=== PATIENT | female | born 1930 | race Caucasian/White ===

== ENCOUNTER 2020-04-07 21:33 | Inpatient (IN) | payer MEDICARE, OTHER ==
[2020-04-07 22:59] LABS: Bilirubin Negative (Negative); Blood, Urine Moderate (Negative); Glucose, Urine (Dipstick) Negative (Negative); Leukocyte Negative (Negative); Nitrite Negative (Negative); Protein, Urine (Dipstick) Negative (Neg-Trace); Urobilinogen 0.2 mg/dL (Less than 2)
[2020-04-07 23:05] LABS: Clarity Clear (Clear)
[2020-04-07 23:06] LABS: Bacteria/HPF None Seen HPF (None Seen); RBC/HPF 0-3 HPF (0-3); Squamous Epithelial 0-3 HPF (0-3); WBC/HPF 0-3 HPF (0-3)
[2020-04-07 23:21] LABS: ALT (SGPT) 39 U/L (8-55); AST (SGOT) 34 U/L (5-34); Albumin 2.9 g/dL (3.4-4.8); Alkaline Phosphatase 152 U/L (40-110); Anion Gap 18 mmol/L (10-20); BUN (Urea Nitrogen) 104 mg/dL (9.8-20.1); Bilirubin, Total 1.6 mg/dL (0.2-1.2); CK (CPK) 46 U/L (29-168); Calc. Creatinine Clearance 0 mL/min (70-130); Calcium 7.9 mg/dL (7.8-10.44); Carbon Dioxide 21 mmol/L (23-31); Chloride 127 mmol/L (98-107); Estimated GFR-MDRD 21; Globulin 3.5 g/dL (2.4-3.5); Glucose 129 mg/dL (83-110); Lipase 135 U/L (8-78); Potassium 3.5 mmol/L (3.5-5.1); Protein, Total 6.4 g/dL (6.0-8.3); Sodium 162 mmol/L (136-145)
[2020-04-07 23:23] LABS: Anisocytosis SLIGHT = 6-15 cells (100X) (0-5/hpf); Band 8 % (5-11); Eosinophils 1 % (0-10); Hemoglobin 11.4 g/dL (12.0-16.0); Lymphocytes 3 % (21-51); MDiff Complete? YES; Macrocytosis SLIGHT = 6-15 cells (100X) (0-5/hpf); Mean Corpuscular HGB CONC 30.7 g/dL (32.0-36.0); Mean Corpuscular Hemoglobin 32.6 pg (27.0-31.0); Mean Platelet Volume 11.9 fL (7.4-10.4); Monocytes 5 % (0-10); Neutrophil 83 % (42-75); Platelet Count 81 thou/uL (130-400); Platelet Morphology Comment Appears Decreased; RBC Distribution Width 18.5 % (11.5-14.5); Red Blood Cell (RBC) Count 3.51 mill/uL (4.20-5.40); White Blood Cell (WBC) Count 18.7 thou/uL (4.8-10.8)
[2020-04-07 23:35] LABS: CKMB 2.5 ng/mL (0-6.6)
[2020-04-07] MEDS ORDERED: Vancomycin 1 GM/200 ML BAG ONE (23:38)
[2020-04-07] MEDS ORDERED: cefTRIAXone\\ROCEPHIN 2 GM VIAL ONE (23:38)
[2020-04-08] MEDS ORDERED: Acetaminophen 650 MG Suppository PR PRN (00:49)
[2020-04-08] MEDS ORDERED: Ondansetron PF 4 MG/2 ML Vial IVP PRN (00:49)
[2020-04-08 02:42] LABS: Lactic Acid 3.2 mmol/L (0.5-2.2)
[2020-04-08 02:53] LABS: Troponin I 0.286 ng/mL (< 0.028)
[2020-04-08] MEDS: Dextrose 5% in Water 1,000 ML IV SCH ×2 (03:19→13:10)
[2020-04-08 03:42] VITALS: BMI 20.3
[2020-04-08 04:26] LABS: ALT (SGPT) 37 U/L (8-55); AST (SGOT) 35 U/L (5-34); Albumin 2.8 g/dL (3.4-4.8); Alkaline Phosphatase 150 U/L (40-110); Anion Gap 20 mmol/L (10-20); BUN (Urea Nitrogen) 88 mg/dL (9.8-20.1); Bilirubin, Total 1.4 mg/dL (0.2-1.2); Calc. Creatinine Clearance 16 mL/min (70-130); Calcium 8.2 mg/dL (7.8-10.44); Carbon Dioxide 20 mmol/L (23-31); Chloride 124 mmol/L (98-107); Estimated GFR-MDRD 24; Globulin 3.5 g/dL (2.4-3.5); Glucose 114 mg/dL (83-110); Lipase 145 U/L (8-78); Potassium 3.6 mmol/L (3.5-5.1); Protein, Total 6.3 g/dL (6.0-8.3); Sodium 160 mmol/L (136-145)
[2020-04-08 04:46] LABS: CKMB 2.6 ng/mL (0-6.6)
[2020-04-08 05:43] LABS: Hemoglobin 11.5 g/dL (12.0-16.0); Mean Corpuscular HGB CONC 29.9 g/dL (32.0-36.0); Mean Corpuscular Hemoglobin 32.2 pg (27.0-31.0); Mean Platelet Volume 8.6 fL (7.4-10.4); Platelet Count 78 thou/uL (130-400); RBC Distribution Width 18.2 % (11.5-14.5); Red Blood Cell (RBC) Count 3.59 mill/uL (4.20-5.40); White Blood Cell (WBC) Count 19.6 thou/uL (4.8-10.8)
[2020-04-08 06:04] LABS: Anisocytosis MODERATE=16-30 cells (100X) (0-5/hpf); Band 19 % (5-11); Lymphocytes 5 % (21-51); MDiff Complete? YES; Macrocytosis SLIGHT = 6-15 cells (100X) (0-5/hpf); Monocytes 6 % (0-10); Neutrophil 70 % (42-75); Platelet Morphology Comment Appears Decreased; Polychromasia SLIGHT = 2-3 cells (100X) (0-2/hpf)
[2020-04-08 06:44] LABS: Troponin I 0.266 ng/mL (< 0.028)
[2020-04-08] MEDS: Meropenem 500 MG in Sodium Chloride 0.9% 100 ML IVPB SCH ×2 (06:45→18:08)
--- NOTE | 2020-04-08 07:15 | RAD ---
CHEST 1 VIEW: Date: 04/07/2020 HISTORY: Altered mental status. COMPARISON: None. FINDINGS: Heart size is enlarged. Bilateral pleural effusions, small. Scarring both lung bases. Severe degenerative disease of both shoulders with rotator cuff arthropathy . Right lower lobe air space consolidation. IMPRESSION: 1. Right lower lobe air space consolidation concerning for infection. 2. Small bilateral pleural effusions. 3. Marked cardiomegaly. POS: HOME
[2020-04-08 08:41] LABS: Legionella Urinary Ag Negative (Negative); Strep pneumo Urine Ag NEGATIVE (NEGATIVE)
[2020-04-08] MEDS ORDERED: Vancomycin 1 GM in Premix Bag 1 BAG IVPB SCH (09:00)
--- NOTE | 2020-04-08 09:21 | CT ---
PRELIMINARY REPORT/[facility]/EMERGENCY AFTER HOURS PROCEDURE: Receipt of this report by the clinical staff was confirmed with Etienne Sarabia NP by Lyn Chaudhry on April 08, 2020 02:07:00 CDT. Addendum electronically signed by Lyn Chaudhry on April 08, 2020 2:07:47 AM CDT EXAM: CT Abdomen and Pelvis Without Intravenous Contrast CLINICAL HISTORY: Abdominal mass. Hypernatremia and acute renal insufficiency. Dementia with reported baseline nonver bal. TECHNIQUE: Axial computed tomography images of the abdomen and pelvis without intravenous contrast. Multiplanar reformats. CONTRAST: None. COMPARISON: None provided. FINDINGS: Limited without contrast. LUNG BASES: Right base patchy opacities. Bilateral small pleural effusions. LIVER: Unremarkable. GALLBLADDER AND BILE DUCTS: Unremarkable. No calcified stone. No ductal dilation. PANCREAS: Unremarkable. SPLEEN: Unremarkable. ADRENAL GLANDS: Unremarkable. KIDNEYS, URETERS, AND BLADDER: Boateng catheter appears dislodged and just within the labia. Left renal cortical hyperdensity. No hydronephrosis or nephrolithiasis. No ureteral or bladder calcul i. STOMACH AND BOWEL: Hiatal hernia No obstruction. No wall thickening. No CT evidence of colitis or acute diverticulitis. APPENDIX: No CT evidence for appendicitis. PERITONEUM: No free fluid. No free air. LYMPH NODES: No lymphadenopathy. REPRODUCTIVE: Unremarkable as visualized. VASCULATURE: Moderate cardiomegaly. 6.2 cm infrarenal aortic aneurysm treated with endograft. ABDOMINAL WALL AND SOFT TISSUES: Ill-defined serpiginous subcutaneous right inguinal mass, about 4.5 x 3.5 cm. BONES: Old T9 compression fracture. Total right hip arthroplasty. No fracture or suspicious osseous abnormality. Lumbar dextroscoliosis. 5 mm anterolisthesis of L4 on L5. Degenerative disc disease with foraminal narrowing at several lumbar levels. Osteopenia. IMPRESSION: 6.2 cm infrarenal aortic aneurysm treated with endograft. No kareen rupture. Comparison to priors barakat ggested. Left renal cortical hyperdensity, concerning for medical renal disease. No hydronephrosis or nephroli thiasis. Moderate cardiomegaly. Hiatal hernia. Right lower lobe pneumonia cannot be excluded. ELECTRONICALLY SIGNED BY: Isaías Ly MD April 08, 2020 2:03:26 AM CDT This report is intended for review by the ordering physician only, in accordance of law. If you recei ve this report in error, please call [facility] at [phone]. FINAL REPORT CT ABDOMEN AND PELVIS WITHOUT CONTRAST: I agree with the preliminary report given by [facility]. No previous exams are available for comparison.
[2020-04-08] MEDS: Famotidine/PF 20 mg/2ml Vial SLOW IVP SCH (10:06)
--- NOTE | 2020-04-08 10:35 | HP ---
CHIEF COMPLAINT: The patient has been sent from longterm because of abnormal labs. HISTORY OF PRESENT ILLNESS: This is an 89-year-old female patient who has history of essential hypertension and the patient had recent abdominal aneurysm repair and the patient is a longterm resident. Currently, the patient is extremely confused and not able to provide any history , but according to the history from the nurse practitioner from the emergency room , the patient was brought to the emergency department because of abnormal lab values. Subsequently, the patient had workup in the emergency department, and the patient was found to be having significant sepsis based on elevated lactic acid level and leukocytosis and presence of infiltrate in the right lower lobe of the lung. The patient also has significant acute kidney injury and hypernatremia. Because of the sepsis, the patient was given 2 L of lactated Ringer's as the patient had significant hypernatremia. Subsequently, the patient has been admitted Internal Medicine Service. Otherwise, no documentation of recent history of fever, cough , abdominal, or urinary symptoms, but the patient had abdominal aortic aneurysm repaired about a week ago at [facility]. PAST MEDICAL HISTORY: Hypertension and recent abdominal aortic aneurysm repair. PAST SURGICAL HISTORY: Abdominal aortic aneurysm repair. ALLERGIES: THE PATIENT IS NOT ALLERGIC TO ANY KNOWN MEDICATIONS. MEDICATIONS: Current medications at the longterm: 1. Seroquel 25 mg orally once a day. 2. Pepcid 20 mg orally once a day. 3. Senna 8.6 mg orally as needed. 4. Tramadol 50 mg orally once a day. 5. Alprazolam 1 mg orally once a day. SOCIAL HISTORY: The patient is a longterm resident; otherwise, no documented evidence of any tobacco abuse, alcohol abuse, or recreational drug abuse. FAMILY HISTORY: Not available at this point of time. REVIEW OF SYSTEMS: As mentioned in the history of present illness apart from the 14-point review of systems that have been conducted and not contributory. PHYSICAL EXAMINATION: GENERAL: Elderly female patient, lying on the stretcher comfortably, not appears to be in any cardiopulmonary distress. Mucous membranes are pale and moist. Acyanotic. Anicteric. No cyanosis, clubbing, pedal edema, or lymphadenopathy. VITAL SIGNS: Blood pressure 145/96, pulse 90, respirations 18, and temperature 99.4. HEENT: Head, atraumatic and normocephalic. Eyes, extraocular movements are intact. Pupils are equal and reactive to light bilaterally and accommodation reflex present. NECK: Supple. No jugular venous distention. No thyromegaly or carotid bruit. CHEST: Bilaterally symmetrical. Trachea is slightly deviated to the right side ; otherwise, the patient has significantly poor inspiratory effort, otherwise, decent breath sounds. No wheezing or rhonchi. CARDIOVASCULAR: Normal intensity of S1 and S2 without S3. No murmurs appreciated. The patient is in sinus tachycardia, and the patient has 2/6 systolic murmur over the entire precordium. ABDOMEN: Soft with palpable mass involving the right upper quadrant, which is firm and minimally tender; otherwise, the patient diffuse abdominal tenderness without any rebound. No organomegaly. Bowel sounds are normoactive. PHARMACEUTICAL ASSISTANT: The patient is arousable to verbal stimuli; otherwise, the patient is extremely confused and not oriented to time, place, and person. The patient has spontaneous movements of both upper and lower extremities. EXTREMITIES: No edema or calf asymmetry. LABORATORY DATA: WBC 18.7, hemoglobin 11.4, hematocrit 37.2, and platelets 81. Sodium 162, potassium 3.5, chloride 127, bicarb 21, anion gap 18, BUN 104, creatinine 2.2, glucose 129, lactic acid 2.3, calcium 7.9. Total bilirubin 1.6 , AST 34, ALT 39, alkaline phosphatase 152, ammonia 15, CK 46, CK-MB 2.5, troponin 0.28, protein 6.4, albumin 2.9, globulin 3.5, and lipase 135. Urinalysis revealed negative nitrite and negative leukocyte esterase. IMAGING STUDIES: Chest x-ray reveals infiltrates on the right lower lobe. ASSESSMENT: 1. Acute metabolic encephalopathy. a. Secondary to severe sepsis with background of dementia. Continue to monitor mental status closely. 2. Sepsis. a. Possibly secondary to right lower lobe healthcare associated pneumonia. b. Intravenous vancomycin and meropenem empirically. c. Continue to monitor lactic acid level as per sepsis protocol, but otherwise avoid normal saline because of severe hypernatremia. d. Await cultures. 3. Healthcare-associated pneumonia. a. Involving the right lower lobe of the lung. b. Continue intravenous vancomycin and meropenem. c. Avoid cultures. d. Urine Legionella and streptococcal antigen. 4. Abdominal mass. a. Involving the right upper quadrant region and umbilical region. b. Avoid CT scan of the abdomen and pelvis. c. The patient had repair of the abdominal aortic aneurysm recently. 5. Acute kidney injury. a. Secondary to sepsis. b. Keep the patient on D5W at 100 mL/hour. c. Avoid nephrotic medications. d. Monitor renal function tomorrow. 6. Hypernatremia. a. Secondary to severe dehydration. b. Avoid crystalloids. c. Keep the patient under excess water. d. Monitor serum sodium tomorrow. 7. Macrocytic anemia. a. Check B12 and folate levels. 8. History of abdominal aortic aneurysm. a. Status post recent repair. 9. Thrombocytopenia. a. Avoid anticoagulant for deep venous thrombosis prophylaxis. Job ID: [id number] [facility]
--- NOTE | 2020-04-08 10:47 | PDOC.HOSPP ---
- Subjective Encounter Date: 04/08/20 non-verbal - Objective Vital Signs & Weight: Vital Signs (12 hours) Temp Pulse Ox 04/08/20 08:00 98 04/08/20 07:07 93 L 04/08/20 07:00 97.8 F 04/08/20 04:00 95 04/08/20 03:41 98.0 F 04/08/20 02:40 96.3 F L Weight Weight 115 lb 1.6 oz Most Recent Monitor Data Heart Rate from ECG 92 NIBP 141/104 NIBP BP-Mean 116 Respiration from ECG 26 SpO2 91 I&O: 04/07/20 04/08/20 04/09/20 06:59 06:59 06:59 Intake Total 341 Output Total 150 Balance 191 Result Diagrams: 04/08/20 03:28 04/08/20 03:28 Hospitalist ROS - Medication Medications: Active Medications Generic Name Dose Route Start Last Admin Trade Name Freq PRN Reason Stop Dose Admin Famotidine 20 mg 04/08/20 09:00 04/08/20 10:06 Pepcid SLOW IVP 20 mg Q24HR ANGELY Administration Meropenem 500 mg/ Sodium 100 mls @ 200 mls/hr 04/08/20 05:00 04/08/20 06:45 Chloride IVPB 100 mls 0500,1700 ANGELY Administration Dextrose/Water 1,000 mls @ 100 mls/hr 04/08/20 01:00 04/08/20 03:19 D5w IV 1,000 mls .Q10H ANGELY Administration - Exam General - other findings: Appears a little encephalopathic. Eye contact, but non-verbal. Heart: RRR, no murmur, no gallops, no rubs, normal peripheral pulses Heart - other findings: Occ. ectopy. Borderline tachy Respiratory: CTAB Respiratory - other findings: Does not cooperate with exam. At times tachypneic. Gastrointestinal: soft, non-tender, non-distended, normal bowel sounds, no palpable masses, no hepatomegaly, no splenomegaly, no bruit Extremities: no cyanosis, no clubbing, no edema Musculoskeletal: generalized weakness Psychiatric: not oriented, lethargic Hosp A/P (1) Sepsis Code(s): A41.9 - SEPSIS, UNSPECIFIED ORGANISM Status: Acute (2) Pneumonia Code(s): J18.9 - PNEUMONIA, UNSPECIFIED ORGANISM Status: Acute (3) Hypernatremia Code(s): E87.0 - HYPEROSMOLALITY AND HYPERNATREMIA Status: Acute (4) Dehydration Code(s): E86.0 - DEHYDRATION Status: Acute (5) FERNANDO (acute kidney injury) Code(s): N17.9 - ACUTE KIDNEY FAILURE, UNSPECIFIED Status: Acute (6) Hyperbilirubinemia Code(s): E80.6 - OTHER DISORDERS OF BILIRUBIN METABOLISM Status: Acute (7) Thrombocytopenia Code(s): D69.6 - THROMBOCYTOPENIA, UNSPECIFIED Status: Acute (8) Cardiomegaly Code(s): I51.7 - CARDIOMEGALY Status: Acute (9) Acute metabolic encephalopathy Code(s): G93.41 - METABOLIC ENCEPHALOPATHY Status: Acute (10) Dementia Code(s): F03.90 - UNSPECIFIED DEMENTIA WITHOUT BEHAVIORAL DISTURBANCE Status: Acute (11) Macrocytic anemia Code(s): D53.9 - NUTRITIONAL ANEMIA, UNSPECIFIED Status: Acute (12) Dysphagia Code(s): R13.10 - DYSPHAGIA, UNSPECIFIED Status: Acute - Plan Sepsis: Hydration IV abx. Follow up cultures. Pneumonia: Concerning for aspiration given location and dysphagia/dementia. Covered with Vanc and Cefepime. Follow up cultures. Has significant leukocytosis with left shift. Acute hypoxic resp failure: Does not like the NC oxygen and skakes her head to get it off. Sats are ok with it. Due to pneumonia. FERNANDO: Appears to be related to dehydration based on indices. Continue to monitor with hydration. Hyperbilirubinemia: Unclear etiology. No major findings on CT abdomen. Monitor. Thrombocytopenia: Monitor for now. Cardiomegaly on CT: Echo. Acute metabolic encph: Difficult to differentiate given the dementia. Likely due to infection. Dementia: Non-verbal. Late stages of the disease. Dysphagia: Likely due to dementia and encephalopathy. Discussed with SOLAR MAINTENANCE TECHNICIAN. Keep NPO and try [place] Free Water Protocol. Macrocytic anemia: Chronic. DVT proph: Heparin. PUD proph: H2 antagonist.
--- NOTE | 2020-04-08 12:13 | CON ---
DATE OF CONSULTATION: 04/08/2020 CONSULTING PHYSICIAN: Hospitalist Group. REASON FOR CONSULTATION: Altered mental status. HISTORY OF PRESENT ILLNESS: The patient cannot give a history. She has never been in this hospital before. What I have is what was obtained in the ER last night. The patient is an 89-year-old prison resident, who was brought to the hospital with altered mental status. I am not sure what her baseline is. Her history and physical indicates she has severe dementia. Also, it is noted that she was in [facility] in [place] 2 weeks ago for AAA endovascular stent. On presentation last night, she was noted to be severely hypernatremic, consistent with profound dehydration. PAST MEDICAL HISTORY: 1. Peripheral vascular disease. 2. Hypertension. 3. Anxiety. 4. Osteoarthritis. 5. Dementia. 6. Congestive heart failure - unknown type. FAMILY MEDICAL HISTORY: Not known at this time. PAST SURGICAL HISTORY: Endovascular AAA stent. SOCIAL HISTORY: Nonsmoker. Does not consume alcohol. MEDICATIONS: Prior to admission; 1. Seroquel 25 mg daily. 2. Pepcid 20 mg daily. 3. Senna 8.6 mg p.r.n. 4. Tramadol 50 mg p.r.n. 5. Alprazolam 1 mg nightly. REVIEW OF SYSTEMS: Cannot be obtained secondary to her altered mental status. PHYSICAL EXAMINATION: VITAL SIGNS: Her temperature is 97.8, pulse 97, blood pressure 149/108, and O2 saturation 91% on room air. GENERAL: The patient is an elderly female, who appears profoundly dry. HEENT: Clear sclera. Oral mucous membranes dry. NECK: No adenopathy or JVD. CARDIAC: S1 and S2. Slightly tachycardic without audible murmur. LUNGS: Clear to auscultation. ABDOMEN: Soft and nontender to palpation. No scars noted. EXTREMITIES: No clubbing, cyanosis, or edema. LABORATORY DATA: Sodium 160, potassium 3.6, chloride 124, CO2 of 20, BUN 88, creatinine 1.9, glucose 114, total bilirubin is 1.4, and alkaline phosphatase 150. Troponin 0.27. Albumin 2.8. Lipase 145. White blood cell count 19.6, hematocrit 38.6, and platelet count 78. IMAGING DATA: Chest x-ray is rotated. Does not show any profound infiltrate. CT of the abdomen was read as negative except for possibility of an infiltrate in the right lower lobe. ASSESSMENT: 1. Profound volume depletion. 2. Possible right lower lobe pneumonia. 3. Dementia. 4. Acute renal dysfunction. PLAN: 1. The patient has been started on D5W for the purpose of rehydration. 2. We would monitor sodium level closely not to drop it too much given the amount of free water deficit that she has at this time. 3. Agree with empiric antibiotics. 4. We would advise discussing with family regarding code status as prognosis seems guarded if not poor. Job ID: [id number]
[2020-04-08 12:28] LABS: Anion Gap 16 mmol/L (10-20); BUN (Urea Nitrogen) 77 mg/dL (9.8-20.1); Calc. Creatinine Clearance 18 mL/min (70-130); Carbon Dioxide 21 mmol/L (23-31); Chloride 121 mmol/L (98-107); Estimated GFR-MDRD 28; Glucose 121 mg/dL (83-110); Potassium 3.3 mmol/L (3.5-5.1); Sodium 155 mmol/L (136-145)
[2020-04-08] MEDS: Heparin 5,000 UNITS/ML VIAL SC SCH (21:37)
[2020-04-08 23:39] LABS: Vancomycin, Random 11.2 ug/mL (See Comment)
[2020-04-08] MEDS ORDERED: Vancomycin HCl 750 MG in Sodium Chloride 0.9% 250 ML 250 ML IVPB SCH (23:59)
[2020-04-09] MEDS: Dextrose 5% in Water 1,000 ML IV SCH ×4 (00:14→19:05)
[2020-04-09] MEDS: Vancomycin HCl 750 MG in Sodium Chloride 0.9% 250 ML 250 ML IVPB SCH (00:24)
[2020-04-09 04:35] LABS: #Eosinphils 0.1 thou/uL (0.0-0.7); #Lymphocytes 0.8 thou/uL (1.20-3.40); #Monocytes 0.9 thou/uL (0.11-0.59); #Neutrophils 12.9 thou/uL (1.40-6.50); %Basophils 0.1 % (0.0-1.0); %Eosinophils 0.4 % (0.0-10.0); %Lymphocytes 5.4 % (21.0-51.0); %Monocytes 6.4 % (0.0-10.0); %Neutrophils 87.8 % (42.0-75.0); Hemoglobin 10.6 g/dL (12.0-16.0); Mean Corpuscular HGB CONC 30.5 g/dL (32.0-36.0); Mean Corpuscular Hemoglobin 32.2 pg (27.0-31.0); Mean Platelet Volume 12.3 fL (7.4-10.4); Platelet Count 76 thou/uL (130-400); RBC Distribution Width 17.3 % (11.5-14.5); White Blood Cell (WBC) Count 14.7 thou/uL (4.8-10.8)
[2020-04-09 04:36] LABS: Anisocytosis SLIGHT = 6-15 cells (100X) (0-5/hpf); MDiff Complete? YES; Macrocytosis SLIGHT = 6-15 cells (100X) (0-5/hpf); Platelet Morphology Comment Appears Decreased; Polychromasia SLIGHT = 2-3 cells (100X) (0-2/hpf); Schistocytes SLIGHT = 2-5 cells (100X) (0-1/hpf)
[2020-04-09 04:39] LABS: ALT (SGPT) 28 U/L (8-55); AST (SGOT) 31 U/L (5-34); Albumin 2.6 g/dL (3.4-4.8); Alkaline Phosphatase 132 U/L (40-110); Anion Gap 14 mmol/L (10-20); BUN (Urea Nitrogen) 67 mg/dL (9.8-20.1); Bilirubin, Total 1.2 mg/dL (0.2-1.2); Calc. Creatinine Clearance 20 mL/min (70-130); Calcium 7.4 mg/dL (7.8-10.44); Carbon Dioxide 20 mmol/L (23-31); Chloride 117 mmol/L (98-107); Estimated GFR-MDRD 31; Globulin 3.3 g/dL (2.4-3.5); Glucose 148 mg/dL (83-110); Potassium 3.3 mmol/L (3.5-5.1); Protein, Total 5.9 g/dL (6.0-8.3); Sodium 148 mmol/L (136-145)
[2020-04-09] MEDS: Meropenem 500 MG in Sodium Chloride 0.9% 100 ML IVPB SCH ×2 (04:52→19:06)
--- NOTE | 2020-04-09 10:21 | PRG ---
DATE OF SERVICE: 04/09/2020 SUBJECTIVE: The patient is doing reasonably well compared to yesterday. She does not verbalize much. OBJECTIVE: VITAL SIGNS: Temperature 98.0, pulse 85, blood pressure 136/89, and O2 saturation in the 90s. HEENT: Unremarkable. NECK: No JVD. LUNGS: Clear anteriorly. CARDIAC: S1 and S2. Regular. ABDOMEN: Soft. EXTREMITIES: Edematous. LABORATORY DATA: White blood cell count 14.7, hematocrit 34.8, and platelet count 76. Sodium 148, potassium 3.3, chloride 117, CO2 of 20, BUN 67, creatinine 1.5, and glucose 148. ASSESSMENT: 1. Profound dehydration. 2. Right lower lobe pneumonia. 3. Acute renal dysfunction. 4. Cardiomyopathy with EF 15% to 20% with [id number] aortic regurgitation and severe mitral regurgitation. PLAN: 1. It would be safe to transfer her out to telemetry from my standpoint. Continue antibiotics until culture results are known. 2. Consider changing heparin to alternative medication as her platelet count is quite low. No further pulmonary recommendations at this time. Job ID: [id number]
--- NOTE | 2020-04-09 10:29 | PDOC.HOSPP ---
- Subjective Encounter Date: 04/09/20 Encounter Time: 10:27 Subjective: Ms. Glez was seen today in follow-up of acute respiratory failure due to pneumonia and hypernatremia. She is non-verbal. She will not respond to me, and just stares. She has an occasional wet sounding cough. - Objective Vital Signs & Weight: Vital Signs (12 hours) Temp 04/09/20 07:08 98.0 F 04/09/20 05:06 97.6 F Weight Weight 115 lb 1.6 oz Most Recent Monitor Data Heart Rate from ECG 85 NIBP 136/89 NIBP BP-Mean 104 Respiration from ECG 23 SpO2 84 I&O: 04/08/20 04/09/20 04/10/20 06:59 06:59 06:59 Intake Total 341 Output Total 150 320 Balance 191 -320 Result Diagrams: 04/09/20 03:28 04/09/20 03:28 Hospitalist ROS - Medication Medications: Active Medications Generic Name Dose Route Start Last Admin Trade Name Freq PRN Reason Stop Dose Admin Meropenem 500 mg/ Sodium 100 mls @ 200 mls/hr 04/08/20 05:00 04/09/20 04:52 Chloride IVPB 100 mls 0500,1700 ANGELY Administration Dextrose/Water 1,000 mls @ 100 mls/hr 04/08/20 01:00 04/09/20 00:14 D5w IV 1,000 mls .Q10H ANGELY Administration Vancomycin HCl 750 mg/ Sodium 250 mls @ 250 mls/hr 04/08/20 23:59 04/09/20 00 :24 Chloride IVPB 250 mls 2359 ANGELY Administration - Exam Eye: PERRL Heart: RRR, murmur present, II/IV Respiratory: CTAB (+ rales and rhonchi bilaterally) Extremities: no clubbing (she has palpable d.p, pulses bilateral, but toes are bluish purple more on the left than right) Hosp A/P (1) Acute respiratory failure with hypoxemia Code(s): J96.01 - ACUTE RESPIRATORY FAILURE WITH HYPOXIA Status: Acute (2) Dementia Code(s): F03.90 - UNSPECIFIED DEMENTIA WITHOUT BEHAVIORAL DISTURBANCE Status: Acute (3) Hypernatremia Code(s): E87.0 - HYPEROSMOLALITY AND HYPERNATREMIA Status: Acute (4) Pneumonia Code(s): J18.9 - PNEUMONIA, UNSPECIFIED ORGANISM Status: Acute (5) Sepsis Code(s): A41.9 - SEPSIS, UNSPECIFIED ORGANISM Status: Acute (6) Thrombocytopenia Code(s): D69.6 - THROMBOCYTOPENIA, UNSPECIFIED Status: Acute (7) Acute systolic heart failure Code(s): I50.21 - ACUTE SYSTOLIC (CONGESTIVE) HEART FAILURE Status: Acute - Plan * Acute respiratory failure due to pneumonia- possible aspiration * Will continue Meropenem and Vancomycin * Hypernatremia- due to severe volume depletion- she has failed her swallow study, and this is likely the culprit with regards to the pneumonia, and dehydration- will leave her npo and will need to discuss with family. Continue Hypotonic fluids * Acute vs. Chronic systolic heart failure- EF is noted to be 15-20%. It does not appear she has an AICD, and there are no old records in our system. Will consider Cardiology evaluation, but with her overall clinical picture, she may be a better candidate for palliative care * Hypokalemia- replace potassium * Thrombocytopenia- will hold heparin, and change pepcid to protonix * Dysphagia- continue npo. * I have placed a call to her son, and will need to discuss her care going forward. Her prognosis is guarded
[2020-04-09] MEDS: Famotidine/PF 20 mg/2ml Vial SLOW IVP SCH (13:54)
[2020-04-09] MEDS: Heparin 5,000 UNITS/ML VIAL SC SCH (13:54)
--- NOTE | 2020-04-09 14:11 | CON ---
DATE OF CONSULTATION: 04/09/2020 REASON FOR CONSULTATION: Congestive heart failure. HISTORY OF PRESENT ILLNESS: Ms. Glez is an 89-year-old woman. She is a patient of [facility]. She apparently underwent percutaneous placement of abdominal aortic aneurysm endovascular graft. She was brought here due to confusion and disorientation, thought to be septic. No history is available from the patient. She is still disoriented. No chest pain or pressure currently. PAST HISTORY: 1. Peripheral vascular disease. 2. Dementia. 3. Congestive heart failure. Those records are not available to me for details. PAST SURGICAL HISTORY: Endovascular stent. MEDICATIONS PRIOR TO ADMISSION: 1. Seroquel. 2. Pepcid. 3. Senna. 4. Tramadol. 5. Alprazolam. REVIEW OF SYSTEMS: Not obtainable. She has altered mental status. PHYSICAL EXAMINATION: GENERAL: This is what appears to be a chronically ill-appearing elderly woman. VITAL SIGNS: Her blood pressure 136/89, pulse 90s and sinus on the monitor. HEENT: Eyes, sclerae nonicteric. NECK: Neck veins are normal. LUNGS: Clear. CARDIAC: No significant S3. No new murmur, rub, or gallop. ABDOMEN: Soft and nontender. EXTREMITIES: Warm and dry. No clubbing or cyanosis. There is no edema. DIAGNOSTIC STUDIES: Echocardiogram shows severely depressed left ventricular function, ejection fraction 15% to 20%. Paradoxical septal motion. Severe mitral regurgitation. EKG shows left bundle-branch block. ASSESSMENT: 1. Congestive heart failure, probably chronic. 2. Mitral regurgitation. 3. Left bundle-branch block. 4. Recent endovascular stent placement. 5. Probable sepsis. PLAN: 1. Add low-dose carvedilol. 2. Add low-dose MAX inhibitor. 3. We will follow with you. Job ID: [id number]
[2020-04-09] MEDS: Carvedilol 3.125 MG TAB PO SCH (19:05)
[2020-04-09] MEDS: Pantoprazole 40 MG VIAL IVP SCH (20:51)
[2020-04-09 23:35] LABS: Vancomycin, Trough 13.8 ug/mL
[2020-04-10] MEDS: Vancomycin HCl 750 MG in Sodium Chloride 0.9% 250 ML 250 ML IVPB SCH (01:24)
--- NOTE | 2020-04-10 03:02 | PDOC.CNTRL ---
Central Line Procedure Note - Procedure Date: 04/10/20 Time: 02:00 - PreProcedure Diagnosis: 1. Loss of peripheral venous access 2. Sepsis 2/2 PNA requiring IV antibiotics 3. Hypernatrmia requiring IVF 4. Acute vs chronic systolic heart failure 5. Thombocytopenia - PostProcedure Diagnosis: 1. S/p LEFT femoral central venous catheter placement 2. same as above - Anesthesia Anesthesia: 1% Lidocaine without epinephrine - Description Focused site: femoral vein: Left Ultrasound guidance: Yes Patient tolerated procedure: well Procedure in Details: INDICATION: Sepsis 2/2 PNA and hypernatremia requiring IV Abx and fluids with loss of peripheral access RESIDENT: Kera/Ritesh ATTENDING PHYSICIAN: Dr. Weeks, present during entire procedure Ultrasound Used: Y CONSENT: Consent was signed by primary team hospitalist and FMR attending as patient has dementia and cannot make medical decisions and son was unable to be reached by phone after multiple attempts. PROCEDURE SUMMARY: A time out was performed. Hands were washed immediately prior to the procedure. Surgical cap, mask with protective eyewear, sterile gown and sterile gloves were worn throughout the procedure. The LEFT inguinal region was prepped using chlorhexidine scrub and draped in sterile fashion using a full drape and sterile probe cover. The femoral pulse was identified. Anesthesia was achieved using 1% lidocaine. Under ultrasound guidance, the introducer needle was inserted medial to the femoral artery, inferior to the inguinal crease and into the femoral vein. Venous blood was withdrawn. The syringe was removed and a guidewire was advanced into the introducer needle. A small incision was made at the skin surface with a scalpel and the introducer needle was exchanged for a dilator over the guidewire. At this point the guidewire was withdrawal out from vein and triple lumen central venous catheter was unable to be advanced. Guideware was removed completely and procedure was restarted. Again, under US guidance, the introducer needle was inserted medial to the femoral artery and venous blood was withdrawn. The syringe was removed and a guidewire was advanced into the introducer needle. Needle was removed and small incision at the skin surface was made with a scalpel and dilator placed over the guidewire. After appropriate dilation was obtained, the dilator was exchanged over the wire for a triple lumen central venous catheter. The wire was removed and the catheter was sutured in place. A sterile dressing with antimicrobial gel was place over the insertion site. The patient tolerated the procedure without any hemodynamic compromise. At time of procedure completion, all ports aspirated and flushed properly. Estimated blood loss was minimal. Addendum - Attending - Attending Attestation Date/Time: 04/11/20 1097 I, Shaheen Weeks MD, personally evaluated the patient and discussed indications for the procedure described by Dr. Alejandre on 04/10/20.. I directly supervised and participated in the CVC placement and I agree with the description of procedure as documented above without any addition or exceptions.
[2020-04-10] MEDS: Meropenem 500 MG in Sodium Chloride 0.9% 100 ML IVPB SCH ×2 (05:35→17:24)
[2020-04-10 06:09] LABS: ALT (SGPT) 24 U/L (8-55); AST (SGOT) 28 U/L (5-34); Albumin 2.6 g/dL (3.4-4.8); Alkaline Phosphatase 125 U/L (40-110); Anion Gap 13 mmol/L (10-20); BUN (Urea Nitrogen) 63 mg/dL (9.8-20.1); Bilirubin, Total 1.4 mg/dL (0.2-1.2); Calc. Creatinine Clearance 22 mL/min (70-130); Calcium 7.4 mg/dL (7.8-10.44); Carbon Dioxide 24 mmol/L (23-31); Chloride 114 mmol/L (98-107); Estimated GFR-MDRD 35; Globulin 3.2 g/dL (2.4-3.5); Glucose 104 mg/dL (83-110); Potassium 3.1 mmol/L (3.5-5.1); Protein, Total 5.8 g/dL (6.0-8.3); Sodium 148 mmol/L (136-145)
[2020-04-10 06:17] LABS: Hemoglobin 10.5 g/dL (12.0-16.0); Mean Corpuscular HGB CONC 30.5 g/dL (32.0-36.0); RBC Distribution Width 17.2 % (11.5-14.5); White Blood Cell (WBC) Count 14.9 thou/uL (4.8-10.8)
[2020-04-10] MEDS ORDERED: Potassium Chloride 20 MEQ/100 ML PREMIX BAG IVPB SCH ×2 (08:00→12:00)
[2020-04-10] MEDS: Carvedilol 3.125 MG TAB PO SCH ×3 (08:04→17:46)
[2020-04-10] MEDS: Lisinopril 2.5 MG TAB PO SCH (08:04)
[2020-04-10 08:11] LABS: #Eosinphils 0.1 thou/uL (0.0-0.7); #Lymphocytes 0.9 thou/uL (1.20-3.40); #Monocytes 0.9 thou/uL (0.11-0.59); %Basophils 0.1 % (0.0-1.0); %Eosinophils 0.8 % (0.0-10.0); %Lymphocytes 6.3 % (21.0-51.0); %Monocytes 5.9 % (0.0-10.0); %Neutrophils 86.9 % (42.0-75.0); Large Platelets SLIGHT; MDiff Complete? YES; Mean Platelet Volume 12.6 fL (7.4-10.4); Platelet Count 95 thou/uL (130-400); Platelet Morphology Comment Appears Decreased
[2020-04-10] MEDS: Dextrose 5% in Water 1,000 ML IV SCH ×2 (08:20→14:28)
--- NOTE | 2020-04-10 08:39 | PRG ---
DATE OF SERVICE: 04/10/2020 SUBJECTIVE: Ms. Glez is more alert and awake today. She is responsive to verbal stimuli, still n.p.o. OBJECTIVE: VITAL SIGNS: Blood pressure 142/79 and pulse 100. LUNGS: Clear. CARDIAC: Normal S1 and normal S2. ABDOMEN: Soft and nontender. EXTREMITIES: Warm and dry. ASSESSMENT: 1. Status post recent placement of an endograft for abdominal aortic aneurysm. 2. Mental status improved. 3. Congestive heart failure, likely this is a chronic finding. 4. Left bundle-branch block. PLAN: 1. MAX inhibitors and beta blockers when she can take oral medicines. 2. She is hypokalemic, replete potassium. 3. Hopefully, records can come in. She has had what sounds like extensive evaluation in the past through the [facility]. Job ID: [id number]
[2020-04-10] MEDS: Pantoprazole 40 MG VIAL IVP SCH ×2 (09:10→22:40)
--- NOTE | 2020-04-10 12:06 | PRG ---
DATE OF SERVICE: 04/10/2020 SUBJECTIVE: The patient continues to be very confused and has an expressive aphasia. OBJECTIVE: VITAL SIGNS: Her temperature is 97, pulse 86, blood pressure 142/79, O2 saturation in the low 90s on nasal cannula. HEENT: Unremarkable. NECK: No adenopathy or JVD. CHEST: Fairly clear anteriorly. CARDIAC: S1, S2, regular. ABDOMEN: Soft. EXTREMITIES: Severe muscle wasting. LABORATORY DATA: Sodium 148, potassium 3.1, chloride 114, CO2 of 24, BUN 63, creatinine 1.4, and glucose 104. White blood cell count 14.9, hematocrit 34.6, and platelet count 95. ASSESSMENT: 1. Severe debilitation. 2. Dehydration. 3. Right lower lobe pneumonia. 4. Acute renal dysfunction. 5. Cardiomyopathy with EF 15% to 20% with [id number] aortic regurgitation and severe mitral regurgitation. RECOMMENDATION: 1. Replace potassium. 2. Okay to transfer to the floor. 3. Continue antibiotics, but I would recommend stopping the vancomycin since nothing has grown out in terms of staphylococcal organisms. 4. This patient's prognosis is poor and code status should be determined. Job ID: [id number]
--- NOTE | 2020-04-10 12:50 | PDOC.FMACP ---
Advance Care Planning - Problem (1) Acute respiratory failure with hypoxemia Status: Acute Code(s): J96.01 - ACUTE RESPIRATORY FAILURE WITH HYPOXIA (2) Dementia Status: Acute Code(s): F03.90 - UNSPECIFIED DEMENTIA WITHOUT BEHAVIORAL DISTURBANCE (3) Hypernatremia Status: Acute Code(s): E87.0 - HYPEROSMOLALITY AND HYPERNATREMIA (4) Pneumonia Status: Acute Code(s): J18.9 - PNEUMONIA, UNSPECIFIED ORGANISM (5) Sepsis Status: Acute Code(s): A41.9 - SEPSIS, UNSPECIFIED ORGANISM (6) Thrombocytopenia Status: Acute Code(s): D69.6 - THROMBOCYTOPENIA, UNSPECIFIED (7) Acute systolic heart failure Status: Acute Code(s): I50.21 - ACUTE SYSTOLIC (CONGESTIVE) HEART FAILURE - Note Summary: I spoke with the patient's son over the phone yesterday and discussed the patient's current condition. He tells me he was unaware of any " heart condition " . He tells me he was under the impression that a fall she suffered causes the " aortic tear". He admits that his mother can be stubborn and insinuates that she may not want " all this treatment and does not like going to the hospital " . However he does not go so far as to say that she would not want resuscitation. Advanced Care Planning was discussed, but no conclusion was reached. Even after explaining the pneumonia, difficulty swallowing the patient is having, and the heart failure, her son does not seem to grasp how sick she is , and her poor prognosis. He is willing to talk with the palliative care team. All questions were answered. The Palliative Care Team will be consulted to help with goals of care and code status. Time Spent (mins): 30 (DOS- 04/09/2020 date of entry 04/10/2020)
--- NOTE | 2020-04-10 12:54 | PDOC.HOSPP ---
- Subjective Encounter Date: 04/10/20 Encounter Time: 12:51 Subjective: Ms. Glez was seen today in follow-up of metabolic encephalopathy, and respiratory failure. She is still confused, and can not hold a meaningful conversation. - Objective Vital Signs & Weight: Vital Signs (12 hours) Temp Pulse Ox 04/10/20 11:00 97.6 F 04/10/20 07:43 98 04/10/20 07:00 97.0 F L 04/10/20 03:45 100 04/10/20 03:29 98.3 F Weight Admit Weight 115 lb 1.6 oz Weight 115 lb 1.6 oz Most Recent Monitor Data Heart Rate from ECG 86 NIBP 142/79 NIBP BP-Mean 100 Respiration from ECG 19 SpO2 100 I&O: 04/09/20 04/10/20 04/11/20 06:59 06:59 06:59 Intake Total 680 Output Total 320 Balance -320 680 Result Diagrams: 04/10/20 05:32 04/10/20 05:32 Hospitalist ROS - Medication Medications: Active Medications Generic Name Dose Route Start Last Admin Trade Name Freq PRN Reason Stop Dose Admin Carvedilol 3.125 mg 04/09/20 17:00 04/10/20 08:04 Coreg PO Not Given BID-WM ANGELY Meropenem 500 mg/ Sodium 100 mls @ 200 mls/hr 04/08/20 05:00 04/10/20 05:35 Chloride IVPB 100 mls 0500,1700 ANGELY Administration Dextrose/Water 1,000 mls @ 100 mls/hr 04/08/20 01:00 04/10/20 08:20 D5w IV Not Given .Q10H ANGELY Lisinopril 2.5 mg 04/10/20 09:00 04/10/20 08:04 Zestril PO Not Given DAILY ANGELY Pantoprazole Sodium 40 mg 04/09/20 21:00 04/10/20 09:10 Protonix IVP 40 mg Q12HR ANGELY Administration Sodium Chloride 10 ml 04/10/20 09:00 04/10/20 09:11 Flush - Normal Saline IVF 10 ml Q12HR ANGELY Administration - Exam Eye: PERRL Heart: RRR, no murmur, no gallops, normal peripheral pulses Respiratory: rales (+ rhonchi and rales at the bases), rhonchi Gastrointestinal: soft, non-tender, non-distended, normal bowel sounds, no palpable masses Extremities: no cyanosis, no edema Hosp A/P (1) Acute respiratory failure with hypoxemia Code(s): J96.01 - ACUTE RESPIRATORY FAILURE WITH HYPOXIA Status: Acute (2) Dementia Code(s): F03.90 - UNSPECIFIED DEMENTIA WITHOUT BEHAVIORAL DISTURBANCE Status: Acute (3) Hypernatremia Code(s): E87.0 - HYPEROSMOLALITY AND HYPERNATREMIA Status: Acute (4) Pneumonia Code(s): J18.9 - PNEUMONIA, UNSPECIFIED ORGANISM Status: Acute (5) Sepsis Code(s): A41.9 - SEPSIS, UNSPECIFIED ORGANISM Status: Acute (6) Thrombocytopenia Code(s): D69.6 - THROMBOCYTOPENIA, UNSPECIFIED Status: Acute (7) Acute systolic heart failure Code(s): I50.21 - ACUTE SYSTOLIC (CONGESTIVE) HEART FAILURE Status: Acute - Plan * Acute respiratory failure due to pneumonia- probable aspiration- continue Vancomycin and Meropenem * Hypernatremia- due to severe volume depletion- continue D5W * Acute vs. Chronic systolic heart failure- records from [facility] in [place] have been requested. Her son was unaware of any diagnosis of heart failure * Agree with the addition of a low dose MAX-I and Beta-sera * Hypokalemia- replace potassium * Thrombocytopenia- will hold heparin, and change pepcid to protonix * Dysphagia- continue npo. * Care was discussed with her son yesterday- will consult Palliative care as well * Prognosis is guarded
[2020-04-10 14:20] LABS: Potassium 3.7 mmol/L (3.5-5.1)
[2020-04-10 14:42] LABS: Base Excess (BEa) -4.2 mEq/L (-2.0 to +3.0); CO2 Tension 29.1 mmHg (35.0-45.0); Carboxyhemoglobin (COHb) 1.6 gm% (0.0-3.0); Hemoglobin (Hb) 11.4 g/dL (12.0-16.0); O2 Tension (PaO2), arterial 99.5 mmHg (> 60.0); pH, Arterial 7.43 (7.35-7.45)
[2020-04-10 14:43] LABS: Puncture Site RRAD
[2020-04-11] MEDS: Dextrose 5% in Water 1,000 ML IV SCH ×3 (00:40→20:38)
[2020-04-11 03:59] LABS: Anion Gap 15 mmol/L (10-20); BUN (Urea Nitrogen) 64 mg/dL (9.8-20.1); Calc. Creatinine Clearance 20 mL/min (70-130); Calcium 7.6 mg/dL (7.8-10.44); Carbon Dioxide 21 mmol/L (23-31); Chloride 109 mmol/L (98-107); Estimated GFR-MDRD 31; Glucose 153 mg/dL (83-110); Potassium 3.7 mmol/L (3.5-5.1); Sodium 141 mmol/L (136-145)
[2020-04-11] MEDS: Meropenem 500 MG in Sodium Chloride 0.9% 100 ML IVPB SCH ×2 (05:53→18:39)
--- NOTE | 2020-04-11 08:58 | PDOC.HOSPP ---
- Subjective Encounter Date: 04/11/20 Encounter Time: 08:56 Subjective: Ms. Glez was seen today in follow-up of respiratory failure and confusion. She is more awake and alert, no longer lethargic. She is confused however. - Objective Vital Signs & Weight: Vital Signs (12 hours) Temp Pulse Ox 04/11/20 07:40 97 04/11/20 07:00 97.4 F L 04/11/20 04:09 100 04/11/20 03:29 97.7 F 04/10/20 23:28 97.7 F Weight Admit Weight 115 lb 1.6 oz Weight 115 lb 1.6 oz Most Recent Monitor Data Heart Rate from ECG 90 NIBP 138/87 NIBP BP-Mean 104 Respiration from ECG 34 SpO2 98 I&O: 04/10/20 04/11/20 04/12/20 06:59 06:59 06:59 Intake Total 680 1984 Output Total 150 Balance 680 1834 Result Diagrams: 04/10/20 05:32 04/11/20 03:20 Hospitalist ROS - Medication Medications: Active Medications Generic Name Dose Route Start Last Admin Trade Name Freq PRN Reason Stop Dose Admin Carvedilol 3.125 mg 04/09/20 17:00 04/10/20 17:46 Coreg PO Not Given BID-WM ANGELY Meropenem 500 mg/ Sodium 100 mls @ 200 mls/hr 04/08/20 05:00 04/11/20 05:53 Chloride IVPB 100 mls 0500,1700 ANGELY Administration Dextrose/Water 1,000 mls @ 100 mls/hr 04/08/20 01:00 04/11/20 00:40 D5w IV 1,000 mls .Q10H ANGELY Administration Lisinopril 2.5 mg 04/10/20 09:00 04/10/20 08:04 Zestril PO Not Given DAILY ANGELY Pantoprazole Sodium 40 mg 04/09/20 21:00 04/10/20 22:40 Protonix IVP 40 mg Q12HR ANGELY Administration Sodium Chloride 10 ml 04/10/20 09:00 04/10/20 22:40 Flush - Normal Saline IVF 10 ml Q12HR ANGELY Administration - Exam Eye: PERRL, anicteric sclera Heart: RRR, no murmur, no gallops, no rubs, normal peripheral pulses Respiratory: rales (+ rales at both bases) Gastrointestinal: soft, non-tender, non-distended, normal bowel sounds, no palpable masses, no hepatomegaly Extremities: no edema Hosp A/P (1) Acute respiratory failure with hypoxemia Code(s): J96.01 - ACUTE RESPIRATORY FAILURE WITH HYPOXIA Status: Acute (2) Dementia Code(s): F03.90 - UNSPECIFIED DEMENTIA WITHOUT BEHAVIORAL DISTURBANCE Status: Acute (3) Hypernatremia Code(s): E87.0 - HYPEROSMOLALITY AND HYPERNATREMIA Status: Acute (4) Pneumonia Code(s): J18.9 - PNEUMONIA, UNSPECIFIED ORGANISM Status: Acute (5) Sepsis Code(s): A41.9 - SEPSIS, UNSPECIFIED ORGANISM Status: Acute (6) Thrombocytopenia Code(s): D69.6 - THROMBOCYTOPENIA, UNSPECIFIED Status: Acute (7) Acute systolic heart failure Code(s): I50.21 - ACUTE SYSTOLIC (CONGESTIVE) HEART FAILURE Status: Acute - Plan * Acute respiratory failure due to pneumonia- probable aspiration- will consider transitioning her to Augmentin * Hypernatremia-improved- will continue D5W, and decrease the rate * Acute vs. Chronic systolic heart failure- records from [facility] in [place] have been requested. Her son was unaware of any diagnosis of heart failure * CHF- continue Lisinopril and Metoprolol * Encephalopathy- I suspect she has some underlying dementia * Hypokalemia- improved * Thrombocytopenia- stable * Dysphagia- she has been cleared for a pureed diet- however she has to be fed, and I suspect she will not be able to keep up with her requirements- will monitor * Palliative Care consult * Prognosis is guarded
--- NOTE | 2020-04-11 09:22 | PRG ---
DATE OF SERVICE: 04/11/2020 SUBJECTIVE: The patient is doing about the same, still confused and demented. PHYSICAL EXAMINATION: VITAL SIGNS: Temperature 97.4, O2 saturation 97%, pulse 90, respiratory rate 18. HEENT: Unremarkable. NECK: No JVD. LUNGS: Clear. CARDIAC: S1 and S2, regular. ABDOMEN: Soft. EXTREMITIES: Muscle wasting present. LABORATORY DATA: Sodium 141, potassium 3.7, chloride 109, CO2 of 21, BUN 64, creatinine 1.5, glucose 153. ASSESSMENT: 1. Severe debilitation. 2. Protein-calorie malnutrition. 3. Cardiomyopathy with EF 15% to 20% with [id number] aortic regurgitation and severe mitral regurgitation. 4. Acute renal dysfunction. 5. Right lower lobe pneumonia. PLAN: Difficult situation with likely poor prognosis. I think she is stable enough to transfer up to the medical floor. Continuing antibiotics. Job ID: [id number]
[2020-04-11] MEDS: Lisinopril 2.5 MG TAB PO SCH (10:08)
[2020-04-11] MEDS: Carvedilol 3.125 MG TAB PO SCH ×2 (10:09→18:49)
[2020-04-11] MEDS: Pantoprazole 40 MG VIAL IVP SCH ×2 (10:10→20:39)
--- NOTE | 2020-04-11 10:53 | PRG ---
DATE OF SERVICE: 04/11/2020 SUBJECTIVE: Ms. Glez responds to verbal stimuli. OBJECTIVE: GENERAL: She is chronically ill-appearing, debilitated elderly woman. VITAL SIGNS: Blood pressure most recently is 138/87, pulse is in the 90s. LUNGS: Clear. CARDIAC: Normal S1, normal S2. ASSESSMENT: 1. Severely depressed left ventricular function. 2. Left bundle-branch block. 3. Mitral regurgitation. 4. Recent abdominal aortic aneurysm, endovascular graft placement. PLAN: Trying low-dose MAX inhibitors and beta-blockers. Prognosis looks very poor. Medical records have been requested. Continue supportive care, but the prognosis appears unfavorable. QRS duration is 0.14 in EKG in the 7th, biventricular pacing would be of marginal benefit hemodynamically likely with this QRS duration. Job ID: [id number]
--- NOTE | 2020-04-11 16:33 | PDOC.PALCO ---
Palliative Care Consult - Consult Details Requesting Physician: Dr Swain Reason for Consult: goals of care, advance directives assistance, family support - Pertinent HPI 89 year old female who is a [facility] resident with recent abdominal aneurysm one week prior at [facility] and discharged back to [facility]. She was found to have abnormal labs while in the [facility], and sent to the emergency room for further evaluation. Found to have sepsis with right lower lobe infiltrate, admitted for medical management. Dementia at baseline with assistance for all ADL - Pertinent PMH HTN, Recent AAA repair, Dementia, HF with EF 15%, - Social History Smoking Status: Unknown if ever smoked Living Situation: [facility] resident - Medications MAR Reviewed: Yes - Allergies Allergies/Adverse Reactions: Allergies Allergy/AdvReac Type Severity Reaction Status Date / Time No Known Drug Allergies Allergy Verified 04/08/20 04:47 - Subjective Opens eyes, but encephalopathic, confused. - ROS Non Response: due to mental status - Objective Vital Signs: Vital Signs - Most Recent Temp Pulse Resp BP Pulse Ox 96.9 F L 97 04/11/20 15:00 04/11/20 07:40 Palliative Performance Scale: 20 - Physical Exam Constitutional: encephalitic, ill appearing HEENT: EOMI, moist MMs, sclera anicteric Respiratory: diminished lung sound Cardiovascular: irregular Deviation from normal: murmur Gastrointestinal: soft, non-tender, incontinent Genitourinary: incontinent Musculoskeletal: diffuse muscle atrophy Neurology: moves all 4 limbs Skin: bruising, fragile, friable Deviation from normal: Encephalopathic - Problem List (1) Acute metabolic encephalopathy Code(s): G93.41 - METABOLIC ENCEPHALOPATHY Current Visit: Yes Status: Acute (2) Acute systolic heart failure Code(s): I50.21 - ACUTE SYSTOLIC (CONGESTIVE) HEART FAILURE Current Visit: Yes Status: Acute (3) Dementia Code(s): F03.90 - UNSPECIFIED DEMENTIA WITHOUT BEHAVIORAL DISTURBANCE Current Visit: Yes Status: Acute (4) Pneumonia Code(s): J18.9 - PNEUMONIA, UNSPECIFIED ORGANISM Current Visit: Yes Status: Acute (5) Sepsis Code(s): A41.9 - SEPSIS, UNSPECIFIED ORGANISM Current Visit: Yes Status: Acute (6) Palliative care encounter Code(s): Z51.5 - ENCOUNTER FOR PALLIATIVE CARE Current Visit: Yes Status: Acute - Plan/Recommendations Plan: Palliative Care communicated with patient son who is her surrogate decision maker/MPOA. He states that he had previously discussed resuscitation measures and his mother wished for aggressive measures. He relayed to Leobadro Puentes RNcare transitions nurse his mother was afraid to . Revisited her continued decline and fragile state of health. *Son to come to hospital 04/12/2020 in the evening to discuss resuscitation status and Goal of care related to multiple morbidities and meaningful recovery. *Continue with full resuscitation and aggressive measures. *Emotional support and therapeutic listening for son. Please also refer to Leobardo Puentes RNelectric gas appliances demonstrator RN notes in note section. Dr Swain aware of plan [50] minutes spent on this encounter with >50% of the time in counseling and coordination of care. Thank you for this very appropriate consult.
[2020-04-12] MEDS: Dextrose 5% in Water 1,000 ML IV SCH (05:14)
[2020-04-12] MEDS: Meropenem 500 MG in Sodium Chloride 0.9% 100 ML IVPB SCH ×2 (05:14→18:45)
[2020-04-12 05:39] LABS: Anion Gap 11 mmol/L (10-20); BUN (Urea Nitrogen) 58 mg/dL (9.8-20.1); Calc. Creatinine Clearance 23 mL/min (70-130); Calcium 7.2 mg/dL (7.8-10.44); Carbon Dioxide 23 mmol/L (23-31); Chloride 104 mmol/L (98-107); Estimated GFR-MDRD 36; Glucose 123 mg/dL (83-110); Potassium 3.4 mmol/L (3.5-5.1); Sodium 135 mmol/L (136-145)
--- NOTE | 2020-04-12 09:03 | PRG ---
DATE OF SERVICE: 04/12/2020 SUBJECTIVE: The patient is still very confused, cannot answer questions meaningfully. OBJECTIVE: VITAL SIGNS: Temperature 96.8, pulse 80, blood pressure 127/82, O2 saturation in the low 90s. HEENT: Unremarkable. NECK: No JVD. LUNGS: Poor air movement. CARDIAC: S1 and S2 regular. ABDOMEN: Soft. EXTREMITIES: No edema. LABORATORY DATA: Sodium 135, potassium 3.4, BUN 58, creatinine 1.3, glucose 123. ASSESSMENT: 1. Severe debilitation. 2. Protein-calorie malnutrition. 3. Severe cardiomyopathy. 4. Acute renal dysfunction. 5. Right lower lobe pneumonia. PLAN: Continue present treatment. From my standpoint, she should continue antibiotics for about 7 total days and then stop. We would suggest physical therapy involvement. Job ID: [id number]
[2020-04-12] MEDS: Pantoprazole 40 MG VIAL IVP SCH ×2 (09:34→21:54)
[2020-04-12] MEDS: Carvedilol 3.125 MG TAB PO SCH ×2 (09:34→18:27)
[2020-04-12] MEDS: Lisinopril 2.5 MG TAB PO SCH (09:34)
--- NOTE | 2020-04-12 09:37 | PRG ---
DATE OF SERVICE: 04/12/2020 SUBJECTIVE: Ms. Glez is resting comfortably. She is still not able to take her medicines orally. She is not eating. OBJECTIVE: VITAL SIGNS: Blood pressure 127/82, pulse 87 and regular. LUNGS: Clear. CARDIAC: Normal S1 and S2. ASSESSMENT: 1. Congestive heart failure systolic chronic. 2. Status post abdominal aortic aneurysm in the graft repair. 3. Failure to thrive, not eating. PLAN: 1. There is some decision being made about a possible PEG tube. 2. Go back in cardiac medicines when she is able to have the PEG tube placed. No other recommendations. Job ID: [id number]
--- NOTE | 2020-04-12 10:04 | PDOC.HOSPP ---
- Subjective Encounter Date: 04/12/20 Encounter Time: 10:02 Subjective: Ms. Glez was seen today in follow-up of pneumonia nd encephalopathy. She is still confused, but alert. - Objective Vital Signs & Weight: Vital Signs (12 hours) Temp Pulse Ox 04/12/20 07:38 94 L 04/12/20 07:00 96.8 F L 04/12/20 03:30 97.0 F L 04/11/20 23:30 97.8 F Weight Admit Weight 115 lb 1.6 oz Weight 115 lb 1.6 oz Most Recent Monitor Data Heart Rate from ECG 88 NIBP 127/82 NIBP BP-Mean 97 Respiration from ECG 24 SpO2 90 I&O: 04/11/20 04/12/20 04/13/20 06:59 06:59 06:59 Intake Total 1984 1560 Output Total 150 350 Balance 1834 1210 Result Diagrams: 04/10/20 05:32 04/12/20 03:45 Hospitalist ROS - Medication Medications: Active Medications Generic Name Dose Route Start Last Admin Trade Name Freq PRN Reason Stop Dose Admin Carvedilol 3.125 mg 04/09/20 17:00 04/12/20 09:34 Coreg PO Not Given BID-WM ANGELY Meropenem 500 mg/ Sodium 100 mls @ 200 mls/hr 04/08/20 05:00 04/12/20 05:14 Chloride IVPB 100 mls 0500,1700 ANGELY Administration Dextrose/Water 1,000 mls @ 100 mls/hr 04/08/20 01:00 04/12/20 05:14 D5w IV 1,000 mls .Q10H ANGELY Administration Lisinopril 2.5 mg 04/10/20 09:00 04/12/20 09:34 Zestril PO Not Given DAILY ANGELY Pantoprazole Sodium 40 mg 04/09/20 21:00 04/12/20 09:34 Protonix IVP 40 mg Q12HR ANGELY Administration Sodium Chloride 10 ml 04/10/20 09:00 04/12/20 09:34 Flush - Normal Saline IVF 10 ml Q12HR ANGELY Administration - Exam Eye: PERRL Heart: RRR, no murmur, no gallops, no rubs, normal peripheral pulses Respiratory: CTAB (except for rales at the right base, occasional wheeze.) Hosp A/P (1) Acute respiratory failure with hypoxemia Code(s): J96.01 - ACUTE RESPIRATORY FAILURE WITH HYPOXIA Status: Acute (2) Dementia Code(s): F03.90 - UNSPECIFIED DEMENTIA WITHOUT BEHAVIORAL DISTURBANCE Status: Acute (3) Hypernatremia Code(s): E87.0 - HYPEROSMOLALITY AND HYPERNATREMIA Status: Acute (4) Pneumonia Code(s): J18.9 - PNEUMONIA, UNSPECIFIED ORGANISM Status: Acute (5) Sepsis Code(s): A41.9 - SEPSIS, UNSPECIFIED ORGANISM Status: Acute (6) Thrombocytopenia Code(s): D69.6 - THROMBOCYTOPENIA, UNSPECIFIED Status: Acute (7) Acute systolic heart failure Code(s): I50.21 - ACUTE SYSTOLIC (CONGESTIVE) HEART FAILURE Status: Acute - Plan * Acute respiratory failure due to pneumonia- probable aspiration- will consider transitioning her to Augmentin * Hypernatremia- resolved, but now serum sodium is a bit low- will change to a balanced fluid * Acute vs. Chronic systolic heart failure- stable * CHF- continue Lisinopril and Metoprolol * Encephalopathy- I suspect she has some underlying dementia * Dysphagia- she has been cleared for a pureed diet- however she has to be fed, and I suspect she will not be able to keep up with her requirements- will monitor * Plan for meeting with the patient's son to discuss treatment going forward * Prognosis is guarded
[2020-04-12] MEDS: Lactated Ringer's 1,000 ML IV SCH (15:26)
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
[2020-04-13 04:38] LABS: Anion Gap 14 mmol/L (10-20); BUN (Urea Nitrogen) 48 mg/dL (9.8-20.1); Calc. Creatinine Clearance 27 mL/min (70-130); Calcium 7.8 mg/dL (7.8-10.44); Carbon Dioxide 21 mmol/L (23-31); Chloride 104 mmol/L (98-107); Estimated GFR-MDRD 44; Glucose 80 mg/dL (83-110); Potassium 3.5 mmol/L (3.5-5.1); Sodium 135 mmol/L (136-145)
[2020-04-13] MEDS: Meropenem 500 MG in Sodium Chloride 0.9% 100 ML IVPB SCH (05:08)
[2020-04-13] MEDS: Lactated Ringer's 1,000 ML IV SCH ×2 (05:09→18:38)
[2020-04-13] MEDS: Lisinopril 2.5 MG TAB PO SCH (07:12)
[2020-04-13] MEDS: Carvedilol 3.125 MG TAB PO SCH ×2 (07:12→18:35)
[2020-04-13] MEDS: Pantoprazole 40 MG VIAL IVP SCH ×2 (07:46→21:19)
--- NOTE | 2020-04-13 08:29 | PRG ---
DATE OF SERVICE: 04/13/2020 SUBJECTIVE: The patient is doing better. She is now somewhat coherent in her speech. OBJECTIVE: VITAL SIGNS: Temperature is 97.1, pulse 87, blood pressure 139/82. HEENT: Unremarkable. NECK: No adenopathy or JVD. CHEST: Clear anteriorly. CARDIAC: S1 and S2. Regular. ABDOMEN: Soft. EXTREMITIES: No edema. LABORATORY DATA: Sodium 135, potassium 3.5, chloride 104, CO2 of 21, BUN 48, creatinine 1.1, glucose 80. ASSESSMENT: 1. Improving metabolic encephalopathy. 2. Severe debilitation. 3. Protein-calorie malnutrition. 4. Severe cardiomyopathy. 5. Acute renal dysfunction and right lower lobe pneumonia. PLAN: Basically, a rehabilitative issue at this point, we are continuing antibiotics until 15 and then they can be stopped. She is stable for transfer to the medical floor. Job ID: [id number]
--- NOTE | 2020-04-13 10:21 | PDOC.HOSPP ---
- Subjective Encounter Date: 04/13/20 Encounter Time: 10:19 Subjective: Ms. Glez was seen today in follow-up of respiratory failure and encephalopathy. She is a bit more interactive today. She is answering questions , but is still confused. - Objective Vital Signs & Weight: Vital Signs (12 hours) Temp Pulse Ox 04/13/20 07:13 99 04/13/20 07:02 97.1 F L 04/13/20 03:43 97.1 F L 04/12/20 23:30 97.4 F L Weight Admit Weight 115 lb 1.6 oz Weight 115 lb 1.6 oz Most Recent Monitor Data Heart Rate from ECG 90 NIBP 137/90 NIBP BP-Mean 105 Respiration from ECG 29 SpO2 99 I&O: 04/12/20 04/13/20 04/14/20 06:59 06:59 06:59 Intake Total 1560 1067 Output Total 350 250 Balance 1210 817 Result Diagrams: 04/10/20 05:32 04/13/20 04:00 Hospitalist ROS - Medication Medications: Active Medications Generic Name Dose Route Start Last Admin Trade Name Freq PRN Reason Stop Dose Admin Carvedilol 3.125 mg 04/09/20 17:00 04/13/20 07:12 Coreg PO Not Given BID-WM ANGELY Meropenem 500 mg/ Sodium 100 mls @ 200 mls/hr 04/08/20 05:00 04/13/20 05:08 Chloride IVPB 100 mls 0500,1700 ANGEYL Administration Lactated Ringer's 1,000 mls @ 70 mls/hr 04/12/20 10:15 04/13/20 05:09 Lactated Ringer's IV 1,000 mls .[id number] ANGELY Administration Lisinopril 2.5 mg 04/10/20 09:00 04/13/20 07:12 Zestril PO Not Given DAILY ANGELY Pantoprazole Sodium 40 mg 04/09/20 21:00 04/13/20 07:46 Protonix IVP 40 mg Q12HR ANGELY Administration Sodium Chloride 10 ml 04/10/20 09:00 04/13/20 07:46 Flush - Normal Saline IVF 10 ml Q12HR ANGELY Administration - Exam Eye: PERRL, anicteric sclera Heart: RRR, no murmur, no gallops, no rubs, normal peripheral pulses Respiratory: rales (Scattered rales and rhonchi at the bases), rhonchi Gastrointestinal: soft, non-tender, non-distended, normal bowel sounds, no palpable masses, no hepatomegaly Extremities: no cyanosis, 1+ LE edema Hosp A/P (1) Acute respiratory failure with hypoxemia Code(s): J96.01 - ACUTE RESPIRATORY FAILURE WITH HYPOXIA Status: Acute (2) Dementia Code(s): F03.90 - UNSPECIFIED DEMENTIA WITHOUT BEHAVIORAL DISTURBANCE Status: Acute (3) Hypernatremia Code(s): E87.0 - HYPEROSMOLALITY AND HYPERNATREMIA Status: Acute (4) Pneumonia Code(s): J18.9 - PNEUMONIA, UNSPECIFIED ORGANISM Status: Acute (5) Sepsis Code(s): A41.9 - SEPSIS, UNSPECIFIED ORGANISM Status: Acute (6) Thrombocytopenia Code(s): D69.6 - THROMBOCYTOPENIA, UNSPECIFIED Status: Acute (7) Acute systolic heart failure Code(s): I50.21 - ACUTE SYSTOLIC (CONGESTIVE) HEART FAILURE Status: Acute - Plan * Acute respiratory failure due to pneumonia- probable aspiration- will transition to Augmentin * Hypernatremia- resolved * Acute vs. Chronic systolic heart failure- stable * CHF- continue Lisinopril and Metoprolol * Encephalopathy- I suspect she has some underlying dementia * Dysphagia-continue pureed diet, and discussed with her son last night- he is unlikely to request PEG placement * Anticipate discharge with Palliative Care * Prognosis is guarded
--- NOTE | 2020-04-13 15:33 | PDOC.PALPN ---
Palliative Progress Note - Subjective Awaken, verbal but confused. - Objective Vital Signs: Vital Signs - Most Recent Temp Pulse Resp BP Pulse Ox 97.4 F L 100 24 H 132/84 100 04/13/20 11:00 04/13/20 11:00 04/13/20 11:00 04/13/20 11:00 04/13/20 11:00 - Physical Exam Constitutional: confusion, encephalitic, ill appearing HEENT: EOMI, moist MMs, sclera anicteric Respiratory: unlabored breathing, diminished lung sound Deviation from normal: Adventicious bilaterally Cardiovascular: RRR Deviation from normal: mottled feet Gastrointestinal: soft, non-tender, incontinent Genitourinary: incontinent Musculoskeletal: pulses present, diffuse muscle atrophy Deviation from normal: mild cyanosis to feet Neurology: moves all 4 limbs Skin: bruising, fragile, friable Deviation from normal: Confused, oriented to self - Assessment (1) Acute metabolic encephalopathy Code(s): G93.41 - METABOLIC ENCEPHALOPATHY Current Visit: Yes Status: Acute (2) Acute systolic heart failure Code(s): I50.21 - ACUTE SYSTOLIC (CONGESTIVE) HEART FAILURE Current Visit: Yes Status: Acute (3) Dementia Code(s): F03.90 - UNSPECIFIED DEMENTIA WITHOUT BEHAVIORAL DISTURBANCE Current Visit: Yes Status: Acute (4) Pneumonia Code(s): J18.9 - PNEUMONIA, UNSPECIFIED ORGANISM Current Visit: Yes Status: Acute (5) Sepsis Code(s): A41.9 - SEPSIS, UNSPECIFIED ORGANISM Current Visit: Yes Status: Acute (6) Palliative care encounter Code(s): Z51.5 - ENCOUNTER FOR PALLIATIVE CARE Current Visit: Yes Status: Acute - Plan Plan: Emotional support to patient when assessed. Spoke with son at length. Discussed poor meaningful recovery and disease trajectory toward end of life. Discussed option of home with hospice and supportive care through agencies/ private pay verses nursing facility with hospice. He is strongly considering nursing facility with hospice. *Transition to [facility] *Communicated with Rakel NOVA and Dr Swain *Usman patient son communicated he and his brother are in agreement in decisions. *Therapeutic listening and emotional support offered. [45] minutes spent on this encounter with >50% of the time in counseling and coordination of care. - ROS Non Response: due to mental status
[2020-04-13] MEDS: Amoxicillin/Potassium Clav 400 mg/5 ml Oral Suspension PO SCH (21:19)
[2020-04-14 06:52] LABS: Anion Gap 14 mmol/L (10-20); BUN (Urea Nitrogen) 44 mg/dL (9.8-20.1); Calc. Creatinine Clearance 30 mL/min (70-130); Calcium 7.5 mg/dL (7.8-10.44); Carbon Dioxide 18 mmol/L (23-31); Chloride 108 mmol/L (98-107); Estimated GFR-MDRD 49; Glucose 103 mg/dL (83-110); Potassium 3.9 mmol/L (3.5-5.1); Sodium 136 mmol/L (136-145)
[2020-04-14] MEDS: Lactated Ringer's 1,000 ML IV SCH ×2 (08:05→20:37)
[2020-04-14] MEDS: Amoxicillin/Potassium Clav 400 mg/5 ml Oral Suspension PO SCH ×2 (08:10→19:02)
[2020-04-14] MEDS: Lisinopril 2.5 MG TAB PO SCH ×2 (08:10→09:00)
[2020-04-14] MEDS: Carvedilol 3.125 MG TAB PO SCH ×4 (08:10→18:04)
[2020-04-14] MEDS: Pantoprazole 40 MG VIAL IVP SCH ×2 (08:11→20:37)
--- NOTE | 2020-04-14 16:12 | EKG ---
Test Reason : Blood Pressure : / mmHG Vent. Rate : 086 BPM Atrial Rate : 086 BPM P-R Int : 142 ms QRS Dur : 138 ms QT Int : 424 ms P-R-T Axes : 044 -52 127 degrees QTc Int : 507 ms Sinus rhythm with Premature atrial complexes Possible Left atrial enlargement Left axis deviation Left bundle branch block Abnormal ECG Confirmed by JOVANI BERRY ([id number]), manager editorial URIEL FARMER ([id number]) on 04/14/2020 4:11:12 PM Referred By: Confirmed By:JOVANI BERRY
--- NOTE | 2020-04-14 16:43 | PDOC.HOSPP ---
- Subjective Encounter Date: 04/14/20 Encounter Time: 16:41 Subjective: Ms. Glez was seen today in follow-up of pneumonia and encephalopathy. She is laying in bed and appears comfortable. No complaints or problems voiced by staff. - Objective Vital Signs & Weight: Vital Signs (12 hours) Temp Pulse Resp BP BP Pulse Ox 04/14/20 16:00 97.3 F L 87 20 135/83 100 04/14/20 11:00 97.3 F L 93 20 141/91 H 98 04/14/20 09:00 93 130/87 04/14/20 07:12 98.7 F 80 20 130/87 91 L 04/14/20 07:00 98.7 F Weight Admit Weight 115 lb 1.6 oz Weight 115 lb 1.6 oz Most Recent Monitor Data Heart Rate from ECG 90 NIBP 137/90 NIBP BP-Mean 105 Respiration from ECG 29 SpO2 99 I&O: 04/13/20 04/14/20 04/15/20 06:59 06:59 06:59 Intake Total 1067 510 10 Output Total 250 100 Balance 817 410 10 Result Diagrams: 04/10/20 05:32 04/14/20 06:06 Hospitalist ROS - Medication Medications: Active Medications Generic Name Dose Route Start Last Admin Trade Name Freq PRN Reason Stop Dose Admin Acetaminophen 650 mg 04/08/20 00:49 04/14/20 15:50 Tylenol [place] 650 mg Q4H PRN Administration Headache/Fever/Mild Pain (1-3) Amoxicillin/Clavulanate Potassium 400 mg 04/13/20 21:00 04/14/20 08:10 Augmentin 400mg/5ml Oral Susp PO 400 mg BID ANGELY Administration Carvedilol 3.125 mg 04/09/20 17:00 04/14/20 09:00 Coreg PO Not Given BID-WM ANGELY Lactated Ringer's 1,000 mls @ 70 mls/hr 04/12/20 10:15 04/14/20 08:05 Lactated Ringer's IV 1,000 mls .[id number] ANGELY Administration Lisinopril 2.5 mg 04/10/20 09:00 04/14/20 09:00 Zestril PO Not Given DAILY ANGELY Pantoprazole Sodium 40 mg 04/09/20 21:00 05/14/20 08:11 Protonix IVP 40 mg Q12HR ANGELY Administration Sodium Chloride 10 ml 04/10/20 09:00 04/14/20 08:11 Flush - Normal Saline IVF 10 ml Q12HR ANGELY Administration - Exam Eye: PERRL Heart: RRR, no murmur, no gallops, no rubs, normal peripheral pulses Respiratory: CTAB (+ with the exception of coarse breath sounds), no rales, no ronchi Gastrointestinal: soft, non-distended, normal bowel sounds Extremities: no cyanosis, no edema Hosp A/P (1) Acute respiratory failure with hypoxemia Code(s): J96.01 - ACUTE RESPIRATORY FAILURE WITH HYPOXIA Status: Acute (2) Dementia Code(s): F03.90 - UNSPECIFIED DEMENTIA WITHOUT BEHAVIORAL DISTURBANCE Status: Acute (3) Hypernatremia Code(s): E87.0 - HYPEROSMOLALITY AND HYPERNATREMIA Status: Acute (4) Pneumonia Code(s): J18.9 - PNEUMONIA, UNSPECIFIED ORGANISM Status: Acute (5) Sepsis Code(s): A41.9 - SEPSIS, UNSPECIFIED ORGANISM Status: Acute (6) Thrombocytopenia Code(s): D69.6 - THROMBOCYTOPENIA, UNSPECIFIED Status: Acute (7) Acute systolic heart failure Code(s): I50.21 - ACUTE SYSTOLIC (CONGESTIVE) HEART FAILURE Status: Acute - Plan * Acute respiratory failure due to aspiration pneumonia * Hypernatremia- resolved * Acute vs. Chronic systolic heart failure- stable * CHF- continue Lisinopril and Metoprolol * Patient is being evaluated for snf placement with Palliative care * Symptom management, and reduce blood draws.
[2020-04-15] MEDS: Carvedilol 3.125 MG TAB PO SCH ×2 (09:49→17:29)
[2020-04-15] MEDS: Amoxicillin/Potassium Clav 400 mg/5 ml Oral Suspension PO SCH ×2 (09:49→19:56)
[2020-04-15] MEDS: Pantoprazole 40 MG VIAL IVP SCH ×2 (09:49→19:54)
[2020-04-15] MEDS: Lisinopril 2.5 MG TAB PO SCH (09:49)
--- NOTE | 2020-04-15 10:47 | PDOC.HOSPP ---
- Subjective Encounter Date: 04/15/20 Encounter Time: 10:45 Subjective: Ms. Glez was seen today in follow-up of pneumonia and metabolic encephalopathy. She is refusing all oral intake. She had been doing this prior to admission as per her son. She is awake, and will talk, but is confused. - Objective Vital Signs & Weight: Vital Signs (12 hours) Temp Pulse Resp BP Pulse Ox 04/15/20 09:49 82 04/15/20 07:44 97.4 F L 82 22 H 141/83 H 95 Weight Admit Weight 115 lb 1.6 oz Weight 115 lb 1.6 oz Most Recent Monitor Data Heart Rate from ECG 90 NIBP 137/90 NIBP BP-Mean 105 Respiration from ECG 29 SpO2 99 I&O: 04/14/20 04/15/20 04/16/20 06:59 06:59 06:59 Intake Total 510 1510 Output Total 100 300 Balance 410 1210 Result Diagrams: 04/10/20 05:32 04/14/20 06:06 Hospitalist ROS - Medication Medications: Active Medications Generic Name Dose Route Start Last Admin Trade Name Freq PRN Reason Stop Dose Admin Acetaminophen 650 mg 04/08/20 00:49 04/14/20 15:50 Tylenol [place] 650 mg Q4H PRN Administration Headache/Fever/Mild Pain (1-3) Amoxicillin/Clavulanate Potassium 400 mg 04/13/20 21:00 04/15/20 09:49 Augmentin 400mg/5ml Oral Susp PO Not Given BID ANGELY Carvedilol 3.125 mg 04/09/20 17:00 04/15/20 09:49 Coreg PO Not Given BID-WM ANGELY Lactated Ringer's 1,000 mls @ 70 mls/hr 04/12/20 10:15 04/14/20 20:37 Lactated Ringer's IV 1,000 mls .[id number] ANGELY Administration Lisinopril 2.5 mg 04/10/20 09:00 04/15/20 09:49 Zestril PO Not Given DAILY ANGELY Pantoprazole Sodium 40 mg 04/09/20 21:00 04/15/20 09:49 Protonix IVP Not Given Q12HR ANGELY Sodium Chloride 10 ml 04/10/20 09:00 04/15/20 09:49 Flush - Normal Saline IVF Not Given Q12HR ANGELY - Exam Eye: PERRL, anicteric sclera Heart: RRR, no murmur, no gallops, no rubs, normal peripheral pulses Respiratory: rales (+ rales at the bases), rhonchi Gastrointestinal: soft, non-tender, non-distended, normal bowel sounds, no palpable masses, no hepatomegaly Extremities: no cyanosis, no edema Skin: normal turgor Hosp A/P (1) Acute respiratory failure with hypoxemia Code(s): J96.01 - ACUTE RESPIRATORY FAILURE WITH HYPOXIA Status: Acute (2) Dementia Code(s): F03.90 - UNSPECIFIED DEMENTIA WITHOUT BEHAVIORAL DISTURBANCE Status: Acute (3) Hypernatremia Code(s): E87.0 - HYPEROSMOLALITY AND HYPERNATREMIA Status: Acute (4) Pneumonia Code(s): J18.9 - PNEUMONIA, UNSPECIFIED ORGANISM Status: Acute (5) Sepsis Code(s): A41.9 - SEPSIS, UNSPECIFIED ORGANISM Status: Acute (6) Thrombocytopenia Code(s): D69.6 - THROMBOCYTOPENIA, UNSPECIFIED Status: Acute (7) Acute systolic heart failure Code(s): I50.21 - ACUTE SYSTOLIC (CONGESTIVE) HEART FAILURE Status: Acute - Plan * Acute respiratory failure due to aspiration pneumonia- continue Augmentin as tolerated * Continue to encourgae oral intake, She is on a pureed diet with risk * She has demonstrated continual functional decline * Her son does not want PEG tube for patient, and agree with family decision * Hypernatremia- resolved * Acute vs. Chronic systolic heart failure- stable * CHF- continue Lisinopril and Metoprolol * Patient is being evaluated for long-term placement with Palliative care * Symptom management, and reduce blood draws- labs every few days * Awaiting discharge placement
[2020-04-15] MEDS: Morphine 2 MG/ML SYRINGE SLOW IVP PRN ×3 (11:01→20:01)
[2020-04-15] MEDS: Lactated Ringer's 1,000 ML IV SCH (12:08)
[2020-04-16] MEDS: Lactated Ringer's 1,000 ML IV SCH ×3 (00:30→22:12)
[2020-04-16] MEDS: Morphine 2 MG/ML SYRINGE SLOW IVP PRN ×3 (04:15→22:12)
[2020-04-16 06:20] LABS: #Eosinphils 0.1 thou/uL (0.0-0.7); #Lymphocytes 0.9 thou/uL (1.20-3.40); #Monocytes 0.9 thou/uL (0.11-0.59); #Neutrophils 11.1 thou/uL (1.40-6.50); %Basophils 0.1 % (0.0-1.0); %Eosinophils 0.6 % (0.0-10.0); %Lymphocytes 7.1 % (21.0-51.0); %Monocytes 6.6 % (0.0-10.0); %Neutrophils 85.6 % (42.0-75.0); Hemoglobin 11.5 g/dL (12.0-16.0); Mean Corpuscular HGB CONC 31.1 g/dL (32.0-36.0); Mean Corpuscular Hemoglobin 31.8 pg (27.0-31.0); Mean Platelet Volume 10.7 fL (7.4-10.4); Platelet Count 114 thou/uL (130-400); RBC Distribution Width 16.8 % (11.5-14.5)
[2020-04-16 06:33] LABS: Anion Gap 17 mmol/L (10-20); BUN (Urea Nitrogen) 48 mg/dL (9.8-20.1); Calc. Creatinine Clearance 25 mL/min (70-130); Calcium 8.1 mg/dL (7.8-10.44); Carbon Dioxide 17 mmol/L (23-31); Chloride 108 mmol/L (98-107); Estimated GFR-MDRD 40; Glucose 90 mg/dL (83-110); Potassium 4.6 mmol/L (3.5-5.1); Sodium 137 mmol/L (136-145)
[2020-04-16 07:31] VITALS: TEMP 97.3
[2020-04-16] MEDS: Lisinopril 2.5 MG TAB PO SCH (08:59)
[2020-04-16] MEDS: Carvedilol 3.125 MG TAB PO SCH ×2 (08:59→17:12)
[2020-04-16] MEDS: Pantoprazole 40 MG VIAL IVP SCH ×2 (09:00→21:53)
[2020-04-16] MEDS: Amoxicillin/Potassium Clav 400 mg/5 ml Oral Suspension PO SCH ×2 (09:14→21:52)
--- NOTE | 2020-04-16 15:38 | PDOC.HOSPP ---
- Subjective Encounter Date: 04/16/20 Encounter Time: 09:10 Subjective: pt is quite confused this am. not able to get any infor or converse. Moaning for the most part. - Objective Vital Signs & Weight: Vital Signs (12 hours) Temp Pulse Resp BP BP Pulse Ox 04/16/20 11:43 90 18 134/81 98 04/16/20 09:00 98 04/16/20 08:59 80 144/83 H 04/16/20 07:29 97.3 F L 80 20 144/83 H 98 Weight Admit Weight 115 lb 1.6 oz Weight 115 lb 1.6 oz Most Recent Monitor Data Heart Rate from ECG 90 NIBP 137/90 NIBP BP-Mean 105 Respiration from ECG 29 SpO2 99 I&O: 04/15/20 04/16/20 04/17/20 06:59 06:59 06:59 Intake Total 1510 1680 Output Total 300 Balance 1210 1680 Result Diagrams: 04/16/20 05:58 04/16/20 05:58 Hospitalist ROS - Medication Medications: Active Medications Generic Name Dose Route Start Last Admin Trade Name Freq PRN Reason Stop Dose Admin Acetaminophen 650 mg 04/08/20 00:49 04/14/20 15:50 Tylenol [place] 650 mg Q4H PRN Administration Headache/Fever/Mild Pain (1-3) Amoxicillin/Clavulanate Potassium 400 mg 04/13/20 21:00 04/16/20 09:14 Augmentin 400mg/5ml Oral Susp PO 400 mg BID ANGELY Administration Carvedilol 3.125 mg 04/09/20 17:00 04/16/20 08:59 Coreg PO 3.125 mg BID-WM ANGELY Administration Lactated Ringer's 1,000 mls @ 70 mls/hr 04/12/20 10:15 04/16/20 11:44 Lactated Ringer's IV 1,000 mls .[id number] ANGELY Administration Lisinopril 2.5 mg 04/10/20 09:00 04/16/20 08:59 Zestril PO 2.5 mg DAILY ANGELY Administration Morphine Sulfate 2 mg 04/15/20 10:44 04/16/20 09:10 Morphine SLOW IVP 2 mg Q4H PRN Administration Moderate Pain (4-6) Pantoprazole Sodium 40 mg 04/09/20 21:00 04/16/20 09:00 Protonix IVP 40 mg Q12HR ANGELY Administration Sodium Chloride 10 ml 04/10/20 09:00 04/16/20 09:00 Flush - Normal Saline IVF 10 ml Q12HR ANGELY Administration - Exam General Appearance: ill appearing General - other findings: AOx0 Eye: PERRL ENT: normocephalic atraumatic Neck: supple Heart: RRR Respiratory: CTAB, normal chest expansion Gastrointestinal: soft, normal bowel sounds Neurological: no focal deficits Psychiatric: not oriented Hosp A/P - Plan (1) Acute respiratory failure with hypoxemia Code(s): J96.01 - ACUTE RESPIRATORY FAILURE WITH HYPOXIA Status: Acute (2) Dementia Code(s): F03.90 - UNSPECIFIED DEMENTIA WITHOUT BEHAVIORAL DISTURBANCE Status: Acute (3) Hypernatremia Code(s): E87.0 - HYPEROSMOLALITY AND HYPERNATREMIA Status: Acute (4) Pneumonia Code(s): J18.9 - PNEUMONIA, UNSPECIFIED ORGANISM Status: Acute (5) Sepsis Code(s): A41.9 - SEPSIS, UNSPECIFIED ORGANISM Status: Acute (6) Thrombocytopenia Code(s): D69.6 - THROMBOCYTOPENIA, UNSPECIFIED Status: Acute (7) Acute systolic heart failure Code(s): I50.21 - ACUTE SYSTOLIC (CONGESTIVE) HEART FAILURE Status: Acute - Plan labile mentation with acute stress superimposed with underlying dementia. * Acute respiratory failure due to aspiration pneumonia- continue Augmentin as tolerated * Continue to encourgae oral intake, She is on a pureed diet with risk * She has demonstrated continual functional decline * Her son does not want PEG tube for patient, and agree with family decision * Hypernatremia- resolved * Acute vs. Chronic systolic heart failure- stable * CHF- continue Lisinopril and Metoprolol * palliative on board * pending placement. * *
[2020-04-17] MEDS: Morphine 2 MG/ML SYRINGE SLOW IVP PRN ×2 (01:56→06:12)
[2020-04-17] MEDS: Carvedilol 3.125 MG TAB PO SCH (08:52)
[2020-04-17] MEDS: Lisinopril 2.5 MG TAB PO SCH (08:52)
[2020-04-17] MEDS: Pantoprazole 40 MG VIAL IVP SCH (08:53)
[2020-04-17] MEDS: Amoxicillin/Potassium Clav 400 mg/5 ml Oral Suspension PO SCH (08:53)
[2020-04-17] MEDS: Lactated Ringer's 1,000 ML IV SCH (09:44)
[2020-04-17 13:27] VITALS: BP 132/82
--- NOTE | 2020-04-17 13:53 | DIS ---
DATE OF ADMISSION: 04/08/2020 DATE OF DISCHARGE: 04/17/2020 DISCHARGE DIAGNOSES: 1. Acute respiratory failure with hypoxia. 2. Dementia. 3. Hypernatremia. 4. Aspiration Pneumonia. 5. Sepsis secondary to pneumonia. 6. Thrombocytopenia. 7. Acute systolic heart failure exacerbation. 8. Severe debilitation. 9. Protein calorie moderate malnutrition. 10. Severe cardiomyopathy. DISCHARGE MEDICATIONS: 1. Tramadol 50 mg q.6 p.r.n. 2. Seroquel 25 mg daily. 3. Zofran 4 mg every 6 hours as needed. 4. Lisinopril 2.5 mg daily. 5. Pepcid 20 mg daily. 6. Coreg 3.125 mg daily. 7. Augmentin 400 mg twice a day for 5 days. 8. Xanax 1mg three times a day as needed. PHYSICAL EXAMINATION: GENERAL: On the day of discharge, the patient is at her baseline mentation. Alert and oriented x1. The patient is not toxic appearing, but she looks quite fragile and appeared to her stated age of 89-year-old. VITAL SIGNS: Temperature 97.3, pulse 67, blood pressure 125/68, and saturating 99% on room air. CARDIOVASCULAR: Regular rate and rhythm without murmurs, rubs, or gallops. LUNGS: Clear to auscultation bilaterally without wheezing, rales, or rhonchi. ABDOMEN: Soft, nontender, nondistended. Good bowel sounds. EXTREMITIES: Without any pitting edema. CONSULT: Pulmonology with Dr. Acuna. HOSPITAL COURSE: This is an 89-year-old female admitted with metabolic encephalopathy, severe debilitation as well as protein calorie malnutrition and severe cardiomyopathy, pneumonia probably secondary to aspiration. She was started from IV antibiotic and transitioned to Augmentin. She had some improvement in her functional status; however, overall prognosis is quite poor. Her son does not want a PEG tube placement. Mild hypernatremia that has resolved. Continued with lisinopril and metoprolol for CHF. She is stable enough [facility] DISCHARGE INSTRUCTIONS: Activity as tolerated. Healthy heart diet. Follow up with the primary care physician in 1 week. TIME SPENT: Discharge time took over 30 minutes. Job ID: [id number] [facility]
== END 2020-04-17 13:04 | DRG 871 ==
LOC: ERS 21:33 → IMCU/EMU 04-08 00:43 → T4-A 04-13 10:40
PROVIDERS: ADMIT Hospitalist; ATTEND Internal Medicine
PROC: 02HV33Z Insertion of Infusion Device into Superior Vena Cava, Percutaneous Approach (ICD-10-PCS; principal; 2020-04-10)
PROC: B548ZZA Ultrasonography of Superior Vena Cava, Guidance (ICD-10-PCS; 2020-04-10)
DX: A41.9 Sepsis, unspecified organism (principal); J96.01 Acute respiratory failure with hypoxia; J69.0 Pneumonitis due to inhalation of food and vomit; G93.41 Metabolic encephalopathy; I50.21 Acute systolic (congestive) heart failure; E87.0 Hyperosmolality and hypernatremia; I42.9 Cardiomyopathy, unspecified; E44.0 Moderate protein-calorie malnutrition; Z51.5 Encounter for palliative care; F41.9 Anxiety disorder, unspecified; M19.90 Unspecified osteoarthritis, unspecified site; F03.90 Unspecified dementia, unspecified severity, without behavioral disturbance, psychotic disturbance, mood disturbance, and anxiety; E87.6 Hypokalemia; I11.0 Hypertensive heart disease with heart failure; R65.20 Severe sepsis without septic shock; E86.0 Dehydration; D64.9 Anemia, unspecified; D69.6 Thrombocytopenia, unspecified; I73.9 Peripheral vascular disease, unspecified; I08.0 Rheumatic disorders of both mitral and aortic valves; E86.9 Volume depletion, unspecified; E80.6 Other disorders of bilirubin metabolism; I44.7 Left bundle-branch block, unspecified; Z68.20 Body mass index [BMI] 20.0-20.9, adult
CPT/HCPCS: 36415; 51701; 71045; 74176; 80048; 80053; 80202; 81003; 81015; 82140; 82150; 82550; 82553; 82607; 82746; 82805; 83605; 83690; 84484; 85007; 85025; 85027; 87040; 87070; 87205; 87449; 87899; 93005; 93306; 94760; 96361; 96365; A4353; C9113; J0696; J2185; J2270; J3370; J3480; J3490; J7050; S0028